=== PATIENT | female | born 1940 | race Caucasian/White ===

== ENCOUNTER → 2018-06-26 | Outpatient (CLI) | payer MEDICARE | END | disposition home or self-care (01) | LOC: RAH 11:54 | PROVIDERS: ATTEND Nurse Practitioner Family | DX: R05 Cough (principal); M85.88 Other specified disorders of bone density and structure, other site; M47.894 Other spondylosis, thoracic region | CPT/HCPCS: 71046 ==

== ENCOUNTER → 2025-04-26 | Outpatient (CLI) | payer MEDICARE ==
--- NOTE | 2025-04-26 23:48 | HMCIMG ---
EXAM: CR Cervical Spine, 3 View CLINICAL HISTORY: Neck pain, right shoulder pain COMPARISON: None provided. FINDINGS: BONES: Vertebral body heights are maintained. No acute fracture or aggressive osseous lesion. ALIGNMENT: Normal cervical lordosis is mildly reduced. Posterior vertebral body alignment preserved. DISCS / DEGENERATIVE CHANGES: Severe degenerative cervical spondylosis with multilevel uncovertebral and facet joint degeneration causing marginal osteophyte formation. Mild reduction of intervertebral disc heights at multiple levels. No listhesis. SOFT TISSUES: No prevertebral soft tissue swelling. Visualised lung apices are clear. 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 * No acute cervical spine fracture or malalignment. /[place]
== END | disposition home or self-care (01) ==
LOC: RAH 10:46
PROVIDERS: ATTEND Internal Medicine
DX: M47.22 Other spondylosis with radiculopathy, cervical region (principal); M25.78 Osteophyte, vertebrae; I35.1 Nonrheumatic aortic (valve) insufficiency; N18.32 Chronic kidney disease, stage 3b; N95.1 Menopausal and female climacteric states; G47.62 Sleep related leg cramps
CPT/HCPCS: 72040